=== PATIENT | female | born 2000 | race Caucasian/White ===

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

== ENCOUNTER 2020-07-30 10:26 | Emergency (ER) | payer OTHER ==
[~2020-07-30] VITALS: Ht 157.5 cm; Wt 48.0 kg
[2020-07-30] MEDS ORDERED: METOCLOPRAMIDE 5 MG/ML, 2ML ONE (11:20)
[2020-07-30] MEDS ORDERED: SODIUM CHLORIDE 0.9% 1,000ML IVBOLUS ONE (11:30)
[2020-07-30] MEDS ORDERED: METOCLOPRAMIDE 5 MG/ML, 2ML IVPush ONE (11:30)
[2020-07-30 11:43] LABS: BASOPHILS % (AUTO) 0 % (0-1); EOSINOPHILS % (AUTO) 0 % (1-7); LYMPHOCYTES % (AUTO) 13 % (22-44); MEAN CORPUSCULAR HEMOGLOBIN 31.2 pg (27.0-34.8); MEAN PLATELET VOLUME 8.1 fL (7.4-10.4); MONOCYTES % (AUTO) 11 % (2-9); NEUTROPHILS % (AUTO) 76 % (42-75); PLATELET COUNT 307 x10^3/uL (130-400); RED BLOOD COUNT 4.62 x10^6/uL (3.82-5.3); RED CELL DISTRIBUTION WIDTH 13.2 % (9.6-15.2)
[2020-07-30 11:46] LABS: MD NO
[2020-07-30 11:47] LABS: MICROSCOPIC INDICATED
[2020-07-30 11:53] LABS: ALANINE AMINOTRANSFERASE 29 U/L (12-78); ALBUMIN 4.4 g/dL (3.4-5.0); ANION GAP 8 mmol/L (5-15); CHLORIDE 104 mmol/L (98-107); CREATININE 0.78 mg/dL (0.55-1.02)
[2020-07-30 11:58] LABS: ALKALINE PHOSPHATASE 71 U/L (45-117); BILIRUBIN,TOTAL 1.5 mg/dL (0.2-1.0); TOTAL PROTEIN 7.9 g/dL (6.4-8.2)
--- NOTE | 2020-07-30 12:10 | NUR ---
PT CAME IN [place] NAUSEA AND VOMITTING SINCE THURSDAY. STATES THAT ON THURSDAY [place] WITH HER FRIENDS AND DRANK SOME TRULYS AND SMOKED WEED AND EVER SINCE SHE HAS BEEN NAUSEOUS AND SICK TO HER STOMACH. PT MEDICATED PER JUL. RESTING IN [facility]. MOTHER BEDSIDE
[2020-07-30] MEDS ORDERED: ONDANSETRON 2MG/ML, 2ML ONE (12:14)
[2020-07-30 12:15] VITALS: BP 122/80
[2020-07-30] MEDS ORDERED: ONDANSETRON 2MG/ML, 2ML IVPush ONE (12:30)
[2020-07-30] MEDS ORDERED: DIAZEPAM 5 MG/ML, 2ML IV ONE (12:30)
[2020-07-30] MEDS ORDERED: DIAZEPAM 5 MG/ML, 2ML ONE (12:34)
== END 2020-07-30 13:11 | disposition home or self-care (01) ==
LOC: ED 13:00
DX: R11.2 Nausea with vomiting, unspecified (principal); F12.929 Cannabis use, unspecified with intoxication, unspecified
CPT/HCPCS: 36415; 80053; 81001; 83690; 84703; 85025; 87086; 96361; 96374; 96375; 99284; J2405; J2765; J3360; J7030